=== PATIENT | female | born 2000 | race Caucasian/White ===

== ENCOUNTER 2021-06-07 10:42 | Emergency (ER) | payer OTHER ==
[2021-06-07] MEDS ORDERED: Sodium Chloride 0.9% 1,000 ML ONE (12:05)
[2021-06-07] MEDS ORDERED: Acetaminophen 500 MG TAB ONE (12:05)
[2021-06-07] MEDS ORDERED: Ketorolac Tromethamine 30 MG/ML VIAL ONE (12:05)
[2021-06-08 16:24] LABS: SARS-CoV-2 PCR by NAA DETECTED (NotDetected)
== END 2021-06-07 13:18 | disposition home or self-care (01) ==
LOC: MADERS 10:42
DX: U07.1 COVID-19 (principal)
CPT/HCPCS: 99283; J1885; J7050; U0003; U0005